=== PATIENT | female | born 1985 | race Caucasian/White ===

== ENCOUNTER 2018-04-30 23:24 | Emergency (ER) | payer OTHER ==
[2018-05-01] MEDS: KETOROLAC 30 MG INJ IM (00:47)
[2018-05-01] MEDS: HYDROCODONE/APAP (5/325) TAB PO (02:54)
== END 2018-05-01 03:25 | disposition home or self-care (01) ==
LOC: FTE 23:24
DX: M25.561 Pain in right knee (principal); R40.2412 Glasgow coma scale score 13-15, at arrival to emergency department; I10 Essential (primary) hypertension; J45.909 Unspecified asthma, uncomplicated; F17.210 Nicotine dependence, cigarettes, uncomplicated
CPT/HCPCS: 81025; 93971; 96372; 99285-25